=== PATIENT | male | born 1940 | race Caucasian/White ===

== ENCOUNTER 2021-04-27 13:19 | Inpatient (IN) | payer OTHER ==
[2021-04-27 15:11] LABS: #Basophils 0.1 10x3/uL (0.0-0.2); #Eosinphils 0.6 10x3/uL (0.0-0.5); #Monocytes 0.9 10x3/uL (0.0-1.1); #Neutrophils 6.2 10x3/uL (1.5-8.4); %Basophils 0.5 % (0.0-2.0); %Eosinophils 6.7 % (0.0-6.0); %Lymphocytes 14.7 % (18.0-47.0); %Monocytes 9.8 % (0.0-10.0); Hemoglobin 13.2 g/dL (13.5-17.5); Mean Corpuscular HGB CONC 33.5 g/dL (32.0-36.0); Mean Corpuscular Hemoglobin 30.9 pg (27.0-33.0); Mean Corpuscular Volume 92.3 fl (81.2-95.1); Mean Platelet Volume 10.2 fl (7.4-10.4); Platelet Count 220 10x3/uL (150-450); RBC Distribution Width 12.2 % (11.5-14.5); Red Blood Cell (RBC) Count 4.27 10x6/uL (4.32-5.72); White Blood Cell (WBC) Count 9.1 10x3/uL (3.5-10.5)
[2021-04-27 15:15] LABS: ALT (SGPT) 29 U/L (8-55); AST (SGOT) 25 U/L (5-34); Albumin 4.7 g/dL (3.4-4.8); Alkaline Phosphatase 132 U/L (40-110); Anion Gap 14 mmol/L (10-20); BUN (Urea Nitrogen) 15 mg/dL (8.4-25.7); Bilirubin, Total 0.5 mg/dL (0.2-1.2); Calc. Creatinine Clearance 0 mL/min (70-130); Calcium 9.2 mg/dL (7.8-10.44); Carbon Dioxide 27 mmol/L (23-31); Chloride 100 mmol/L (98-107); Globulin 3.1 g/dL (2.4-3.5); Glucose 158 mg/dL (83-110); Lipase 39 U/L (8-78); Potassium 4.3 mmol/L (3.5-5.1); Protein, Total 7.8 g/dL (5.8-8.1); Sodium 137 mmol/L (136-145)
[2021-04-27 15:37] LABS: CKMB 5.6 ng/mL (0-6.6)
[2021-04-27] MEDS ORDERED: Dextrose 5% in Water 1,000 ML IV PRN (17:41)
[2021-04-27] MEDS ORDERED: Dextrose 50% Abboject 50 ML SYRINGE SLOW IVP PRN (17:41)
[2021-04-27] MEDS ORDERED: HumaLOG 300 UNITS/3 ML VIAL SC PRN ×2 (17:41)
[2021-04-27 18:51] LABS: Prothrombin Time 11.5 sec (9.5-12.1)
[2021-04-27 20:22] VITALS: BMI 21.2
[2021-04-27] MEDS ORDERED: Aspirin 325 mg Enteric Coated Tablet PO SCH (20:30)
[2021-04-27 20:31] LABS: SARS-CoV-2 NAA Rapid Test Not Detected (NotDetected)
[2021-04-27 20:58] LABS: Troponin I 0.054 ng/mL (< 0.028)
[2021-04-27] MEDS ORDERED: Atorvastatin Calcium 40 MG TAB PO SCH (21:00)
[2021-04-27] MEDS: Acetaminophen 325 MG TAB PO PRN (21:36)
[2021-04-27] MEDS ORDERED: carBAMazepine 200 MG TAB PO SCH (22:30)
[2021-04-28] MEDS ORDERED: traMADol HCl 50 MG TAB PO SCH (01:00)
[2021-04-28 01:30] LABS: Bilirubin Neg (Negative); Blood, Urine 10 (Negative); Clarity Clear (Clear); Glucose, Urine (Dipstick) Normal (Negative); Ketone, Urine Negative (Negative); Leukocyte Negative (Negative); Nitrite Negative (Negative); Protein, Urine (Dipstick) 100 mg/dl (Neg-Trace); Specific Gravity, Urine 1.005 (1.002-1.036); Urobilinogen Normal mg/dL (Less than 2)
[2021-04-28 01:37] LABS: Amphetamine Not Detected (NotDetected); Barbiturates Screen Not Detected (NotDetected); Benzodiazepine Screen Not Detected (NotDetected); Cocaine Metabolite Screen Not Detected (NotDetected); Methadone Not Detected (NotDetected); Methamphetamine Not Detected (NotDetected); Opiate Screen Not Detected (NotDetected); Oxycodone Screen Not Detected (NotDetected); Phencyclidine (PCP) Not Detected (NotDetected); THC/Cannabinoid Screen Not Detected (NotDetected); Tricyclic Screen Not Detected (NotDetected)
[2021-04-28 01:43] LABS: Bacteria/HPF None Seen HPF (None Seen); Mucous/LPF None Seen LPF (<2+); RBC/HPF 0-3 HPF (0-3); Squamous Epithelial 0-3 HPF (0-3); WBC/HPF None Seen HPF (0-3)
[2021-04-28] MEDS: Enoxaparin Sodium 80 MG/0.8 ML SYRINGE SC SCH ×2 (01:55→14:52)
[2021-04-28] MEDS ORDERED: cloNIDine 0.1 MG TAB PO SCH (03:15)
[2021-04-28 04:51] LABS: #Eosinphils 0.7 10x3/uL (0.0-0.5); #Neutrophils 5.5 10x3/uL (1.5-8.4); %Basophils 0.5 % (0.0-2.0); %Eosinophils 7.8 % (0.0-6.0); %Lymphocytes 17.3 % (18.0-47.0); %Monocytes 11.6 % (0.0-10.0); %Neutrophils 62.6 % (40.0-75.0); Hemoglobin 12.6 g/dL (13.5-17.5); Mean Corpuscular HGB CONC 34.3 g/dL (32.0-36.0); Mean Corpuscular Hemoglobin 31.3 pg (27.0-33.0); Mean Corpuscular Volume 91.3 fl (81.2-95.1); Mean Platelet Volume 9.9 fl (7.4-10.4); Platelet Count 198 10x3/uL (150-450); RBC Distribution Width 12.2 % (11.5-14.5); Red Blood Cell (RBC) Count 4.02 10x6/uL (4.32-5.72); White Blood Cell (WBC) Count 8.7 10x3/uL (3.5-10.5)
[2021-04-28 05:05] LABS: Anion Gap 13 mmol/L (10-20); BUN (Urea Nitrogen) 15 mg/dL (8.4-25.7); Calc. Creatinine Clearance 65 mL/min (70-130); Calcium 8.6 mg/dL (7.8-10.44); Carbon Dioxide 24 mmol/L (23-31); Chloride 104 mmol/L (98-107); Cholesterol 127 mg/dl (< 200 Desired); Glucose 172 mg/dL (83-110); HDL Cholesterol 43 mg/dL (>60 Neg Risk); LDL Cholesterol, Calculated 69 mg/dL; Potassium 3.7 mmol/L (3.5-5.1); Sodium 137 mmol/L (136-145); Triglycerides 76 mg/dL (Less than 150)
[2021-04-28 05:24] LABS: Syphilis Antibody Nonreactive (Nonreactive); Syphilis Antibody Index 0.03 S/CO (<1.00 Non-Reactive)
[2021-04-28] MEDS: Aspirin 81 mg Enteric Coated Tablet PO SCH (09:37)
[2021-04-28] MEDS ORDERED: Warfarin Sodium 2.5 MG TAB PO SCH (17:00)
[2021-04-28] MEDS: Terazosin HCl 1 MG CAP PO SCH (20:13)
[2021-04-28] MEDS: Atorvastatin Calcium 40 MG TAB PO SCH (20:14)
[2021-04-28] MEDS: Acetaminophen 325 MG TAB PO PRN (20:14)
[2021-04-28] MEDS: carBAMazepine 200 MG TAB PO SCH (20:14)
[2021-04-29] MEDS: Enoxaparin Sodium 80 MG/0.8 ML SYRINGE SC SCH ×2 (02:18→13:31)
[2021-04-29] MEDS: carBAMazepine 200 MG TAB PO SCH ×2 (08:35→20:27)
[2021-04-29] MEDS: Aspirin 81 mg Enteric Coated Tablet PO SCH (08:35)
[2021-04-29] MEDS: Senokot S 8.6-50 MG TAB PO SCH ×2 (08:43→20:26)
[2021-04-29 08:45] LABS: Prothrombin Time 11.1 sec (9.5-12.1)
[2021-04-29] MEDS ORDERED: Warfarin Sodium 5 MG TAB PO SCH (12:00)
[2021-04-29 12:47] LABS: Hemoglobin A1c 6.1 % (4.0-6.0)
[2021-04-29] MEDS: Terazosin HCl 1 MG CAP PO SCH (20:26)
[2021-04-29] MEDS: Acetaminophen 325 MG TAB PO PRN (20:27)
[2021-04-29] MEDS: Atorvastatin Calcium 40 MG TAB PO SCH (20:27)
[2021-04-30] MEDS: Enoxaparin Sodium 80 MG/0.8 ML SYRINGE SC SCH ×2 (03:02→16:13)
[2021-04-30 04:26] LABS: INR-International Normal Ratio 1.1
[2021-04-30] MEDS ORDERED: Lisinopril 20 MG TAB PO SCH (10:15)
[2021-04-30] MEDS: carBAMazepine 200 MG TAB PO SCH ×2 (10:30→20:08)
[2021-04-30] MEDS: Aspirin 81 mg Enteric Coated Tablet PO SCH (10:31)
[2021-04-30] MEDS: Senokot S 8.6-50 MG TAB PO SCH ×2 (10:31→20:13)
[2021-04-30] MEDS: Warfarin Sodium 7.5 MG TAB PO SCH (16:13)
[2021-04-30] MEDS: Metoprolol Tartrate 25 MG TAB PO SCH (20:08)
[2021-04-30] MEDS: Atorvastatin Calcium 40 MG TAB PO SCH (20:09)
[2021-04-30] MEDS: Terazosin HCl 1 MG CAP PO SCH (20:12)
[2021-05-01] MEDS: Enoxaparin Sodium 80 MG/0.8 ML SYRINGE SC SCH ×2 (01:55→15:23)
[2021-05-01 04:56] LABS: INR-International Normal Ratio 1.6; Prothrombin Time 17.7 sec (9.5-12.1)
[2021-05-01] MEDS ORDERED: Lisinopril 20 MG TAB PO SCH (09:00)
[2021-05-01] MEDS ORDERED: glipiZIDE 5 MG TAB PO SCH (09:00)
[2021-05-01] MEDS: carBAMazepine 200 MG TAB PO SCH (09:46)
[2021-05-01] MEDS: Metoprolol Tartrate 25 MG TAB PO SCH (09:47)
[2021-05-01] MEDS: Aspirin 81 mg Enteric Coated Tablet PO SCH (09:47)
[2021-05-01] MEDS: Senokot S 8.6-50 MG TAB PO SCH (09:47)
[2021-05-01 12:58] VITALS: BP 151/81; TEMP 97.6
[2021-05-01] MEDS: Warfarin Sodium 7.5 MG TAB PO SCH (16:00)
[2021-05-02] MEDS ORDERED: Warfarin Sodium 2.5 MG TAB PO SCH (17:00)
== END 2021-05-01 16:30 | DRG 65 ==
LOC: CSHERS 13:19 → UNDOADMOB 13:20 → CSHTELE 13:20 → OBSVTOIN 04-29 15:37
PROVIDERS: ADMIT Family Medicine; ATTEND Internal Medicine
DX: I63.81 Other cerebral infarction due to occlusion or stenosis of small artery (principal); I48.20 Chronic atrial fibrillation, unspecified; Z20.822 Contact with and (suspected) exposure to COVID-19; E11.42 Type 2 diabetes mellitus with diabetic polyneuropathy; I10 Essential (primary) hypertension; E78.5 Hyperlipidemia, unspecified; N40.0 Benign prostatic hyperplasia without lower urinary tract symptoms; M19.90 Unspecified osteoarthritis, unspecified site; R79.1 Abnormal coagulation profile; L40.9 Psoriasis, unspecified; I25.10 Atherosclerotic heart disease of native coronary artery without angina pectoris; Z95.1 Presence of aortocoronary bypass graft; Z79.01 Long term (current) use of anticoagulants; Z88.0 Allergy status to penicillin; Z79.82 Long term (current) use of aspirin; Z79.899 Other long term (current) drug therapy
CPT/HCPCS: 36415; 36416; 70450; 70551; 71045; 80048; 80053; 80061; 80306; 81001; 82553; 82607; 82746; 83036; 83690; 83735; 83880; 84443; 84484; 85025; 85610; 86780; 93005; 93010; 93306; 93880; 96372; G0378; J1650; U0002

== ENCOUNTER 2021-05-12 23:54 | Emergency (ER) | payer OTHER ==
[2021-05-13 01:07] LABS: #Eosinphils 0.7 10x3/uL (0.0-0.5); #Monocytes 1.1 10x3/uL (0.0-1.1); %Basophils 0.3 % (0.0-2.0); %Eosinophils 5.9 % (0.0-6.0); %Lymphocytes 12.7 % (18.0-47.0); %Monocytes 9.1 % (0.0-10.0); %Neutrophils 71.8 % (40.0-75.0); Hemoglobin 13.2 g/dL (13.5-17.5); Mean Corpuscular HGB CONC 33.8 g/dL (32.0-36.0); Mean Corpuscular Hemoglobin 30.8 pg (27.0-33.0); Mean Corpuscular Volume 91.1 fl (81.2-95.1); Mean Platelet Volume 9.6 fl (7.4-10.4); Platelet Count 253 10x3/uL (150-450); RBC Distribution Width 12.1 % (11.5-14.5); Red Blood Cell (RBC) Count 4.29 10x6/uL (4.32-5.72); White Blood Cell (WBC) Count 12.6 10x3/uL (3.5-10.5)
[2021-05-13 01:21] LABS: ALT (SGPT) 34 U/L (8-55); AST (SGOT) 27 U/L (5-34); Albumin 4.6 g/dL (3.4-4.8); Alkaline Phosphatase 115 U/L (40-110); Anion Gap 14 mmol/L (10-20); BUN (Urea Nitrogen) 16 mg/dL (8.4-25.7); Bilirubin, Total 0.4 mg/dL (0.2-1.2); Calc. Creatinine Clearance 0 mL/min (70-130); Calcium 9.2 mg/dL (7.8-10.44); Carbon Dioxide 27 mmol/L (23-31); Chloride 97 mmol/L (98-107); Globulin 3.5 g/dL (2.4-3.5); Glucose 118 mg/dL (83-110); Lipase 74 U/L (8-78); Potassium 5.4 mmol/L (3.5-5.1); Protein, Total 8.1 g/dL (5.8-8.1); Sodium 133 mmol/L (136-145)
[2021-05-13 01:52] LABS: INR-International Normal Ratio 6.2
[2021-05-13 02:12] LABS: Bilirubin Neg (Negative); Blood, Urine 25 (Negative); Clarity Clear (Clear); Glucose, Urine (Dipstick) Normal (Negative); Ketone, Urine Negative (Negative); Leukocyte Negative (Negative); Nitrite Negative (Negative); Protein, Urine (Dipstick) 100 mg/dl (Neg-Trace); Specific Gravity, Urine 1.005 (1.002-1.036); Urobilinogen Normal mg/dL (Less than 2)
[2021-05-13 02:20] LABS: Bacteria/HPF Rare-Few HPF (None Seen); RBC/HPF 0-3 HPF (0-3); Squamous Epithelial 0-3 HPF (0-3); WBC/HPF 0-3 HPF (0-3)
== END 2021-05-13 02:33 | disposition home or self-care (01) ==
LOC: CSHERS 23:54
DX: R79.1 Abnormal coagulation profile (principal); Z79.82 Long term (current) use of aspirin; Z79.899 Other long term (current) drug therapy
CPT/HCPCS: 74177; 80053; 81003; 81015; 83690; 85025; 85610

== ENCOUNTER 2022-04-06 06:46 | Emergency (ER) | payer OTHER ==
[2022-04-06] MEDS ORDERED: Ondansetron PF 4 MG/2 ML Vial ONE (07:34)
[2022-04-06 07:57] LABS: #Eosinphils 0.4 10x3/uL (0.0-0.5); #Monocytes 0.8 10x3/uL (0.0-1.1); #Neutrophils 7.3 10x3/uL (1.5-8.4); %Basophils 0.3 % (0.0-2.0); %Eosinophils 4.1 % (0.0-6.0); %Monocytes 7.9 % (0.0-10.0); %Neutrophils 76.3 % (40.0-75.0); Hemoglobin 12.8 g/dL (13.5-17.5); Mean Corpuscular HGB CONC 34.7 g/dL (32.0-36.0); Mean Corpuscular Hemoglobin 30.5 pg (27.0-33.0); Mean Corpuscular Volume 88.1 fl (81.2-95.1); Mean Platelet Volume 9.3 fl (7.4-10.4); Platelet Count 240 10x3/uL (150-450); Red Blood Cell (RBC) Count 4.19 10x6/uL (4.32-5.72); White Blood Cell (WBC) Count 9.6 10x3/uL (3.5-10.5)
[2022-04-06 08:05] LABS: INR-International Normal Ratio 1.5
[2022-04-06 08:18] LABS: ALT (SGPT) 26 U/L (8-55); AST (SGOT) 22 U/L (5-34); Albumin 4.3 g/dL (3.4-4.8); Alkaline Phosphatase 92 U/L (40-110); Anion Gap 14 mmol/L (10-20); BUN (Urea Nitrogen) 23 mg/dL (8.4-25.7); Bilirubin, Total 0.3 mg/dL (0.2-1.2); Calc. Creatinine Clearance 0 mL/min (70-130); Calcium 8.8 mg/dL (7.8-10.44); Carbon Dioxide 24 mmol/L (23-31); Chloride 96 mmol/L (98-107); Estimated GFR 51; Globulin 3.4 g/dL (2.4-3.5); Glucose 155 mg/dL (83-110); Potassium 4.3 mmol/L (3.5-5.1); Protein, Total 7.7 g/dL (5.8-8.1); Sodium 130 mmol/L (136-145)
[2022-04-06] MEDS ORDERED: Promethazine 25 MG TAB ONE (09:37)
== END 2022-04-06 12:00 | disposition home or self-care (01) ==
LOC: CSHERS 06:46
DX: S00.83XA Contusion of other part of head, initial encounter (principal); I10 Essential (primary) hypertension; E86.0 Dehydration; E11.9 Type 2 diabetes mellitus without complications; I48.91 Unspecified atrial fibrillation; I25.10 Atherosclerotic heart disease of native coronary artery without angina pectoris; W18.09XA Striking against other object with subsequent fall, initial encounter
CPT/HCPCS: 36415; 70450; 72125; 80053; 84484; 85025; 85610; 93005; 96374; J2405; Q0169

== ENCOUNTER 2022-10-28 03:41 | Emergency (ER) | payer OTHER ==
[2022-10-28] MEDS ORDERED: Labetalol HCl 100 MG/20 ML VIAL ONE (04:06)
[2022-10-28 04:32] LABS: #Eosinphils 0.2 10x3/uL (0.0-0.5); #Monocytes 0.7 10x3/uL (0.0-1.1); #Neutrophils 10.6 10x3/uL (1.5-8.4); %Basophils 0.2 % (0.0-2.0); %Eosinophils 1.8 % (0.0-6.0); %Lymphocytes 7.1 % (18.0-47.0); %Monocytes 5.5 % (0.0-10.0); %Neutrophils 85.1 % (40.0-75.0); Hemoglobin 13.3 g/dL (13.5-17.5); Mean Corpuscular HGB CONC 34.3 g/dL (32.0-36.0); Mean Corpuscular Volume 90.4 fl (81.2-95.1); Mean Platelet Volume 10.2 fl (7.4-10.4); Platelet Count 214 10x3/uL (150-450); RBC Distribution Width 11.9 % (11.5-14.5); Red Blood Cell (RBC) Count 4.29 10x6/uL (4.32-5.72); White Blood Cell (WBC) Count 12.5 10x3/uL (3.5-10.5)
[2022-10-28 04:37] LABS: ALT (SGPT) 28 U/L (8-55); AST (SGOT) 29 U/L (5-34); Albumin 4.3 g/dL (3.4-4.8); Alkaline Phosphatase 86 U/L (40-110); Anion Gap 15 mmol/L (10-20); BUN (Urea Nitrogen) 18 mg/dL (8.4-25.7); Bilirubin, Total 0.3 mg/dL (0.2-1.2); Calc. Creatinine Clearance 0 mL/min (70-130); Calcium 9.1 mg/dL (7.8-10.44); Carbon Dioxide 24 mmol/L (23-31); Chloride 100 mmol/L (98-107); Estimated GFR 55; Globulin 3.2 g/dL (2.4-3.5); Glucose 145 mg/dL (83-110); Lipase 58 U/L (8-78); Potassium 4.7 mmol/L (3.5-5.1); Protein, Total 7.5 g/dL (5.8-8.1); Sodium 134 mmol/L (136-145)
[2022-10-28 05:00] LABS: CKMB 2.4 ng/mL (0-6.6)
[2022-10-28 06:02] LABS: Bilirubin Neg (Negative); Blood, Urine 50 (Negative); Clarity Clear (Clear); Glucose, Urine (Dipstick) 50 mg/dL (Negative); Ketone, Urine Negative (Negative); Leukocyte Negative (Negative); Nitrite Negative (Negative); Protein, Urine (Dipstick) 100 mg/dl (Neg-Trace); Specific Gravity, Urine 1.015 (1.005-1.030); Urobilinogen Normal mg/dL (Less than 2); pH, Urine 6.5 (5.0-9.0)
[2022-10-28 06:09] LABS: Bacteria/HPF None Seen HPF (None Seen); CAUTI Indications for Culture Dysuria,urgency,freq; RBC/HPF 0-3 HPF (0-3); Squamous Epithelial 0-3 HPF (0-3); WBC/HPF None Seen HPF (0-3)
[2022-10-28 06:10] LABS: Urine Culture Reflex No No
[2022-10-28] MEDS ORDERED: Lisinopril 10 MG TAB ONE (08:09)
[2022-10-28] MEDS ORDERED: Ketorolac Tromethamine 30 MG/ML VIAL ONE (08:09)
[2022-10-28] MEDS ORDERED: Piperacillin/Tazobactam 3.375 GM VIAL ONE (08:10)
[2022-10-28] MEDS ORDERED: Morphine 2 MG/ML VIAL ONE (08:10)
[2022-10-28] MEDS ORDERED: carBAMazepine 200 MG TAB PO SCH (08:30)
[2022-10-28 08:43] LABS: INR-International Normal Ratio 3.6; PTT 51.4 sec (22.0-33.0); Prothrombin Time 37.5 sec (9.5-12.1)
[2022-10-28 12:09] LABS: CKMB 2.4 ng/mL (0-6.6)
[2022-10-28] MEDS ORDERED: Iopamidol 300 61% 100 ML VIAL FS ONE (13:43)
== END 2022-10-28 13:46 | disposition short-term general hospital (02) ==
LOC: EEVIPCON 03:41 → CSHERS 03:41
DX: K81.0 Acute cholecystitis (principal); I10 Essential (primary) hypertension; R79.89 Other specified abnormal findings of blood chemistry; I25.10 Atherosclerotic heart disease of native coronary artery without angina pectoris; E11.40 Type 2 diabetes mellitus with diabetic neuropathy, unspecified; Z79.82 Long term (current) use of aspirin; Z79.899 Other long term (current) drug therapy; Z79.84 Long term (current) use of oral hypoglycemic drugs; Z79.01 Long term (current) use of anticoagulants
CPT/HCPCS: 51702; 71045; 74177; 76705; 80053; 81001; 82553; 83690; 84484; 85025; 85610; 85730; 93005; 96361; 96374; 96375; 96376; J1885; J2272; J2543; Q9967